=== PATIENT | female | born 1960 | race African-American/Black ===

== ENCOUNTER → 2016-07-30 | Outpatient (CLI) | payer MEDICARE, MEDICAID ==
[~2016-07-30] MED LIST: ALBU18; ALBUAER3 IN; BECL0.07 INH; BENA20TA4; CALCTAB25 PO; FLUT250M2; FOLI1TAB6; HYDR200T36; METH2.5T3; OME20T
[2016-07-30 15:23] LABS: Basophils # (auto) 0.1 uL; Basophils % (auto) 0.7 % (0.0-2.0); Eosinophils # (auto) 0.1 uL; Eosinophils % (auto) 1.3 % (0.0-7.0); Hematocrit 44.4 % (36.0-46.0); Hemoglobin 14.4 g/dL (12.2-16.2); Lymphocytes # (auto) 3.2 uL; Lymphocytes % (auto) 30.9 % (10.0-50.0); Mean Corpuscular Hemoglobin 32.4 pg (28.0-32.0); Mean Corpuscular Hgb Conc. 32.4 g/dL (32.0-36.0); Mean Corpuscular Volume 99.9 fL (80.0-100.0); Mean Platelet Volume 8.4 fL (7.4-10.4); Monocytes # (auto) 0.4 uL; Monocytes % (auto) 4.2 % (0.0-12.0); Neutrophils # (auto) 6.6 uL; Neutrophils % (auto) 62.9 % (37.0-80.0); Platelet Count (auto) 322 10^3/uL (140-450); Red Cell Distribution Width 14.8 % (11.6-16.0); White Blood Cell 10.4 10^3/uL (4.4-10.8)
[2016-07-30 15:49] LABS: Albumin 3.7 g/dL (3.4-5.0); BUN/Creatinine Ratio 12.2; Bilirubin, Total 0.6 mg/dL (0.2-1.0); Calcium 8.6 mg/dL (8.5-10.1); Potassium 4.2 mmol/L (3.5-5.1); Total Protein 7.3 g/dL (6.4-8.2)
== END | disposition home or self-care (01) ==
LOC: LAB 14:25
DX: Z79.899 Other long term (current) drug therapy (principal); M25.50 Pain in unspecified joint; A15.0 Tuberculosis of lung; K25.9 Gastric ulcer, unspecified as acute or chronic, without hemorrhage or perforation; M06.9 Rheumatoid arthritis, unspecified; D64.9 Anemia, unspecified; I10 Essential (primary) hypertension; J44.9 Chronic obstructive pulmonary disease, unspecified
CPT/HCPCS: 36415; 80053; 80074; 85025; 85652; 86141

== ENCOUNTER → 2016-08-16 | Outpatient (CLI) | payer MEDICARE, MEDICAID ==
[~2016-08-16] MED LIST changes: +ALBUTEROL SULF 2.5 MG/0.5ML(0.5%) NEB SOLN ONE
== END | disposition home or self-care (01) ==
LOC: RT 08:37
PROVIDERS: ATTEND Internal Medicine Pulmonary Disease
DX: J44.9 Chronic obstructive pulmonary disease, unspecified (principal); R94.5 Abnormal results of liver function studies
CPT/HCPCS: 94060; 94640

== ENCOUNTER 2016-10-07 14:19 | Emergency (ER) | payer MEDICARE, MEDICAID ==
[~2016-10-07] VITALS: Ht 165.1 cm; Wt 74.8 kg
[~2016-10-07 14:19] MED LIST changes: -ALBUTEROL SULF 2.5 MG/0.5ML(0.5%) NEB SOLN ONE; +BENA20TA14; -BENA20TA4
[2016-10-07] MEDS ORDERED: ALBUTEROL SULF 2.5 MG/0.5ML(0.5%) NEB SOLN NEB STA (14:27)
[2016-10-07] MEDS ORDERED: IPRATROPIUM BROM 0.5 MG/2.5ML INH SOL NEB ONE ×2 (14:30→15:00)
[2016-10-07 14:47] LABS: Basophils # (auto) 0.1 uL; Basophils % (auto) 0.7 % (0.0-2.0); Eosinophils # (auto) 0.2 uL; Eosinophils % (auto) 2.3 % (0.0-7.0); Hematocrit 42.6 % (36.0-46.0); Hemoglobin 14.4 g/dL (12.2-16.2); Lymphocytes # (auto) 1.4 uL; Lymphocytes % (auto) 13.6 % (10.0-50.0); Mean Corpuscular Hemoglobin 32.9 pg (28.0-32.0); Mean Corpuscular Hgb Conc. 33.9 g/dL (32.0-36.0); Mean Platelet Volume 7.7 fL (7.4-10.4); Monocytes # (auto) 0.4 uL; Monocytes % (auto) 3.9 % (0.0-12.0); Neutrophils # (auto) 8.2 uL; Neutrophils % (auto) 79.5 % (37.0-80.0); Platelet Count (auto) 356 10^3/uL (140-450); Red Cell Distribution Width 13.1 % (11.6-16.0); White Blood Cell 10.4 10^3/uL (4.4-10.8)
[2016-10-07] MEDS ORDERED: SODIUM CHLORIDE 0.9% 1,000 ML IV ONE (14:48)
[2016-10-07] MEDS ORDERED: ALBUTEROL SULF 2.5 MG/0.5ML(0.5%) NEB SOLN NEB ONE (15:00)
[2016-10-07] MEDS ORDERED: methylPREDNISolone SOD SUCC 125 MG/2 ML VL IV ONE (15:00)
[2016-10-07 15:39] LABS: Albumin 3.7 g/dL (3.4-5.0); BUN/Creatinine Ratio 19.8; Calcium 8.2 mg/dL (8.5-10.1); Potassium 4.4 mmol/L (3.5-5.1)
[2016-10-07 15:41] LABS: Bilirubin, Total 0.5 mg/dL (0.2-1.0); Total Protein 7.5 g/dL (6.4-8.2)
[2016-10-07 16:39] LABS: B-Type Natriuretic Peptide 86.8 pg/mL (0-100)
[2016-10-07] MEDS ORDERED: AZITHROMYCIN 500MG/D5W 250ML 250 ML IV ONE (16:45)
[2016-10-07 17:22] LABS: Temperature: 23.5 C (20.0-25.0)
[2016-10-07] MEDS ORDERED: ONDANSETRON HCL 4 MG/2 ML VIAL IV ONE (17:30)
[2016-10-07 19:15] VITALS: BP 129/69
== END 2016-10-07 19:49 | disposition home or self-care (01) ==
LOC: ER 14:19
DX: J45.901 Unspecified asthma with (acute) exacerbation (principal); M06.9 Rheumatoid arthritis, unspecified; I10 Essential (primary) hypertension; Z87.891 Personal history of nicotine dependence; J44.9 Chronic obstructive pulmonary disease, unspecified; K21.9 Gastro-esophageal reflux disease without esophagitis
CPT/HCPCS: 36415; 71020; 80053; 83735; 83880; 84443; 85025; 93005; 94640; 94761; 96361; 96365; 96366; 96375; 99285; J0456; J2405; J2930; J7030

== ENCOUNTER 2017-01-19 08:50 | Emergency (ER) | payer MEDICARE, MEDICAID ==
[~2017-01-19] VITALS: Ht 177.8 cm; Wt 68.0 kg
[2017-01-19] MEDS ORDERED: SODIUM CHLORIDE 0.9% 1,000 ML IV ONE (10:21)
[2017-01-19] MEDS ORDERED: MECLIZINE HCL 25 MG TAB PO ONE (10:30)
[2017-01-19 11:05] LABS: Basophils # (auto) 0.2 uL; Basophils % (auto) 2.2 % (0.0-2.0); Eosinophils # (auto) 0.2 uL; Eosinophils % (auto) 1.9 % (0.0-7.0); Hematocrit 40.8 % (36.0-46.0); Hemoglobin 14.1 g/dL (12.2-16.2); Lymphocytes # (auto) 3.2 uL; Lymphocytes % (auto) 39.5 % (10.0-50.0); Mean Corpuscular Hemoglobin 33.7 pg (28.0-32.0); Mean Corpuscular Hgb Conc. 34.4 g/dL (32.0-36.0); Mean Corpuscular Volume 97.9 fL (80.0-100.0); Mean Platelet Volume 7.9 fL (6.9-10.8); Monocytes # (auto) 0.6 uL; Monocytes % (auto) 7.4 % (0.0-12.0); Platelet Count (auto) 284 10^3/uL (140-450); Red Cell Distribution Width 13.5 % (11.8-14.3); White Blood Cell 8.1 10^3/uL (4.4-10.8)
[2017-01-19 11:20] LABS: Albumin 3.5 g/dL (3.4-5.0); BUN/Creatinine Ratio 10.6; Calcium 8.5 mg/dL (8.5-10.1); Magnesium 2.5 mg/dL (1.6-2.6); Potassium 3.9 mmol/L (3.5-5.1)
[2017-01-19 11:25] LABS: Bilirubin, Total 0.6 mg/dL (0.2-1.0); Total Protein 6.6 g/dL (6.4-8.2)
[2017-01-19 15:52] VITALS: BP 130/85
== END 2017-01-19 16:20 | disposition home or self-care (01) ==
LOC: EDBD 08:50 → ER 08:50
DX: R55 Syncope and collapse (principal); R42 Dizziness and giddiness; M06.9 Rheumatoid arthritis, unspecified; J44.9 Chronic obstructive pulmonary disease, unspecified; K21.9 Gastro-esophageal reflux disease without esophagitis; Z87.891 Personal history of nicotine dependence; Z88.6 Allergy status to analgesic agent; Z91.013 Allergy to seafood
CPT/HCPCS: 36415; 70450; 71020; 80053; 83735; 84443; 85025; 93005; 94761; 96360; 96361; 99285; J7030; J8597

== ENCOUNTER → 2017-09-16 | Outpatient (CLI) | payer MEDICARE, MEDICAID ==
[~2017-09-16] MED LIST changes: -ALBU18; -BENA20TA14; +BENA20TA14 PO; +DEXT1SYP9 PO; -FOLI1TAB6; +FOLI1TAB6 PO; +LEVO500T21 PO; -METH2.5T3; +METH2.5T3 PO; +NICO14DI9 TD; -OME20T; +OMEP20CA74 PO
[2017-09-16 10:46] LABS: Albumin 3.5 g/dL (3.4-5.0); BUN/Creatinine Ratio 15.3; Bilirubin, Total 0.6 mg/dL (0.2-1.0); Calcium 8.6 mg/dL (8.5-10.1); Potassium 3.7 mmol/L (3.5-5.1); Total Protein 6.6 g/dL (6.4-8.2)
== END | disposition home or self-care (01) ==
LOC: LAB 09:37
PROVIDERS: ATTEND Internal Medicine Pulmonary Disease
DX: Z12.11 Encounter for screening for malignant neoplasm of colon (principal); M06.9 Rheumatoid arthritis, unspecified; M13.0 Polyarthritis, unspecified; J44.9 Chronic obstructive pulmonary disease, unspecified; K21.9 Gastro-esophageal reflux disease without esophagitis; I10 Essential (primary) hypertension; Z79.899 Other long term (current) drug therapy
CPT/HCPCS: 36415; 80053; 80061; 82270; 83036; 87070; 87205

== ENCOUNTER 2018-03-24 10:47 | Inpatient (IN) | payer OTHER, MEDICAID ==
[~2018-03-24] VITALS: Ht 165.1 cm; Wt 73.1 kg
[2018-03-24] MEDS ORDERED: IPRATROPIUM BROM 0.5 MG/2.5ML INH SOL HHN ONE (11:30)
[2018-03-24] MEDS ORDERED: methylPREDNISolone SOD SUCC 125 MG/2 ML VL IV ONE (11:30)
[2018-03-24] MEDS ORDERED: ALBUTEROL SULF 2.5 MG/0.5ML(0.5%) NEB SOLN HHN ONE (11:30)
[2018-03-24 12:13] LABS: Basophils # (auto) 0 uL; Basophils % (auto) 0.7 % (0.0-2.0); Eosinophils # (auto) 0.3 uL; Eosinophils % (auto) 3.9 % (0.0-7.0); Hematocrit 42.9 % (36.0-46.0); Hemoglobin 14.2 g/dL (12.2-16.2); Lymphocytes # (auto) 2.7 uL; Lymphocytes % (auto) 38.8 % (10.0-50.0); Mean Corpuscular Hemoglobin 32.4 pg (28.0-32.0); Mean Corpuscular Hgb Conc. 33.1 g/dL (32.0-36.0); Mean Corpuscular Volume 97.8 fL (80.0-100.0); Monocytes # (auto) 0.7 uL; Monocytes % (auto) 9.7 % (0.0-12.0); Neutrophils # (auto) 3.3 uL; Neutrophils % (auto) 46.9 % (37.0-80.0); Nucleated Red Blood Cells % 0.1 %; Platelet Count (auto) 338 10^3/uL (140-450); Red Blood Cells 4.38 10^6/uL (4.0-5.20); Red Cell Distribution Width 13.9 % (11.8-14.3); White Blood Cell 6.9 10^3/uL (4.4-10.8)
[2018-03-24 12:31] LABS: Alanine Aminotransferase 27 U/L (13-56); Albumin 3.6 g/dL (3.4-5.0); Anion Gap 7 (5-15); Aspartate Aminotransferase 19 U/L (15-37); BUN/Creatinine Ratio 13.6; Blood Urea Nitrogen 15 mg/dL (7-18); Calcium 8.6 mg/dL (8.5-10.1); Carbon Dioxide 27 mmol/L (21-32); Chloride 110 mmol/L (98-107); GFR African American 65 mL/min; GFR Non-African American 54 mL/min; Glucose 83 mg/dL (74-106); Magnesium 2.3 mg/dL (1.6-2.6); Potassium 4.7 mmol/L (3.5-5.1); Sodium 144 mmol/L (136-145)
[2018-03-24 12:37] LABS: Alkaline Phosphatase 88 U/L (45-117); Bilirubin, Total 0.4 mg/dL (0.2-1.0); Total Protein 7.5 g/dL (6.4-8.2)
[2018-03-24] MEDS ORDERED: NITROGLYCERIN 0.4 MG SL TAB SL PRN (14:30)
[2018-03-24] MEDS ORDERED: AZITHROMYCIN 500MG/ 250ML 250 ML IV ONE (14:30)
[2018-03-24] MEDS ORDERED: cefTRIAXone 1GM/50ML D5W 50 ML IV ONE (14:30)
[2018-03-24] MEDS ORDERED: MORPHINE SULFATE 4 MG/ML SYR/VIAL IV PRN (14:30)
[2018-03-24] MEDS ORDERED: NICOTINE 14 MG/24HR TOPICAL PATCH TD ONE (14:30)
[2018-03-24] MEDS: LORazepam 2MG/ML-1ML VIAL IV PRN (17:42)
[2018-03-24] MEDS: BUDESONIDE (INHALATION) 0.5 MG/2 ML NEB NEB SCH (18:05)
[2018-03-24] MEDS: IPRATROPIUM BROM 0.5 MG/2.5ML INH SOL NEB SCH ×2 (18:14→22:40)
[2018-03-24] MEDS: ALBUTEROL SULF 2.5 MG/0.5ML(0.5%) NEB SOLN NEB SCH ×2 (18:15→22:41)
[2018-03-24] MEDS ORDERED: ALUM & MAG HYDROX-SIMETH LIQ(MAALOX) 30 ML PO ONE (19:45)
[2018-03-24 19:47] VITALS: BP 128/78
[2018-03-24] MEDS ORDERED: ASPI81TA27 PO (21:30)
[2018-03-24] MEDS ORDERED: CHOL20007 PO (21:31)
[2018-03-24 22:00] VITALS: BP 127/70
[2018-03-24] MEDS: methylPREDNISolone SOD SUCC 40 MG/ML VL IV SCH (22:13)
[2018-03-25 00:34] VITALS: BP 127/70
[2018-03-25] MEDS: LORazepam 2MG/ML-1ML VIAL IV PRN ×2 (02:16→21:52)
[2018-03-25 05:00] VITALS: BP 156/93
[2018-03-25] MEDS: IPRATROPIUM BROM 0.5 MG/2.5ML INH SOL NEB SCH ×5 (05:41→23:00)
[2018-03-25] MEDS: ALBUTEROL SULF 2.5 MG/0.5ML(0.5%) NEB SOLN NEB SCH ×5 (05:41→23:00)
[2018-03-25] MEDS: methylPREDNISolone SOD SUCC 40 MG/ML VL IV SCH ×2 (05:44→21:52)
[2018-03-25 06:59] LABS: Anion Gap 9 (5-15); Blood Urea Nitrogen 15 mg/dL (7-18); Calcium 8.9 mg/dL (8.5-10.1); Carbon Dioxide 24 mmol/L (21-32); Chloride 108 mmol/L (98-107); Glucose 148 mg/dL (74-106); Potassium 4.1 mmol/L (3.5-5.1); Sodium 141 mmol/L (136-145)
[2018-03-25 07:05] LABS: BUN/Creatinine Ratio 16.3; GFR African American 80 mL/min; GFR Non-African American 66 mL/min
[2018-03-25] MEDS: cefTRIAXone 1GM/50ML D5W 50 ML IV SCH (08:48)
[2018-03-25] MEDS: PANTOPRAZOLE 40 MG TAB PO SCH (08:48)
[2018-03-25] MEDS: ONDANSETRON HCL 4 MG/2 ML VIAL IV PRN ×2 (08:48→21:52)
[2018-03-25] MEDS: HYDROcodone-ACET 5/325MG TAB PO PRN ×2 (08:49→21:53)
[2018-03-25] MEDS: HYDROXYCHLOROQUINE SULFATE 200 MG TAB PO SCH (08:50)
[2018-03-25] MEDS: FOLIC ACID 1 MG TAB PO SCH (08:51)
[2018-03-25] MEDS: BENAZEPRIL HCL 10 MG TAB PO SCH (08:53)
[2018-03-25 09:00] VITALS: BP 149/82
[2018-03-25] MEDS: NICOTINE 14 MG/24HR TOPICAL PATCH TD SCH (09:08)
[2018-03-25] MEDS ORDERED: AZITHROMYCIN 500MG/ 250ML 250 ML IV SCH (10:00)
[2018-03-25] MEDS: BUDESONIDE (INHALATION) 0.5 MG/2 ML NEB NEB SCH ×2 (10:46→19:05)
[2018-03-25 12:40] VITALS: BP 133/69
[2018-03-25 17:00] VITALS: BP 134/74
[2018-03-25 22:01] VITALS: BP 134/66
[2018-03-25 22:42] LABS: Urine Bacteria NONE SEEN /hpf (None Seen); Urine Blood Negative /uL (Negative); Urine Specific Gravity 1.009 (1.001-1.035); Urine WBC 2 /hpf (0 - 5)
[2018-03-26 05:00] VITALS: BP 140/68
[2018-03-26] MEDS: ALBUTEROL SULF 2.5 MG/0.5ML(0.5%) NEB SOLN NEB SCH ×3 (07:36→15:03)
[2018-03-26] MEDS: IPRATROPIUM BROM 0.5 MG/2.5ML INH SOL NEB SCH ×3 (07:36→15:03)
[2018-03-26] MEDS: BUDESONIDE (INHALATION) 0.5 MG/2 ML NEB NEB SCH (07:36)
[2018-03-26 09:00] VITALS: BP 121/66
[2018-03-26] MEDS: cefTRIAXone 1GM/50ML D5W 50 ML IV SCH (09:25)
[2018-03-26] MEDS: PANTOPRAZOLE 40 MG TAB PO SCH (09:37)
[2018-03-26] MEDS: HYDROXYCHLOROQUINE SULFATE 200 MG TAB PO SCH (09:37)
[2018-03-26] MEDS: methylPREDNISolone SOD SUCC 40 MG/ML VL IV SCH (09:37)
[2018-03-26] MEDS: FOLIC ACID 1 MG TAB PO SCH (09:37)
[2018-03-26] MEDS: NICOTINE 14 MG/24HR TOPICAL PATCH TD SCH (09:38)
[2018-03-26] MEDS: BENAZEPRIL HCL 10 MG TAB PO SCH (09:43)
[2018-03-26] MEDS ORDERED: AZITHROMYCIN 250 MG TAB PO SCH (10:00)
[2018-03-26 13:00] VITALS: BP 142/70
[2018-03-26 14:59] VITALS: BP 121/66
== END 2018-03-26 15:30 | disposition home or self-care (01) | DRG 193 ==
LOC: ER 10:47 → TELE 14:25 → TELE-WESTW 20:25 → WEST WING 03-25 15:29
PROVIDERS: ADMIT Internal Medicine; ATTEND Internal Medicine
DX: J18.9 Pneumonia, unspecified organism (principal); J96.20 Acute and chronic respiratory failure, unspecified whether with hypoxia or hypercapnia; J44.1 Chronic obstructive pulmonary disease with (acute) exacerbation; J44.0 Chronic obstructive pulmonary disease with (acute) lower respiratory infection; I10 Essential (primary) hypertension; M06.9 Rheumatoid arthritis, unspecified; K21.9 Gastro-esophageal reflux disease without esophagitis; F17.200 Nicotine dependence, unspecified, uncomplicated; M19.90 Unspecified osteoarthritis, unspecified site; Z88.8 Allergy status to other drugs, medicaments and biological substances; Z91.013 Allergy to seafood; Z91.012 Allergy to eggs
CPT/HCPCS: 36415; 71045; 80048; 80053; 81001; 83735; 83880; 84484; 85025; 85379; 87081; 93005; 93306; 94640; 94644; 94761; 96365; 96367; 96375; G0378; J0696; J2405

== ENCOUNTER 2018-04-19 14:16 | Emergency (ER) | payer OTHER, MEDICAID ==
[~2018-04-19] VITALS: Ht 167.6 cm; Wt 69.4 kg
[~2018-04-19 14:16] MED LIST changes: +ASPI81TA27 PO; +CHOL20007 PO; -LEVO500T21 PO; -OMEP20CA74 PO
[2018-04-19] MEDS ORDERED: SODIUM CHLORIDE 0.9% 1,000 ML IV ONE (14:31)
[2018-04-19] MEDS ORDERED: MECLIZINE HCL 25 MG TAB PO ONE (14:45)
[2018-04-19 15:15] LABS: Basophils # (auto) 0 uL; Eosinophils # (auto) 0.2 uL; Hematocrit 46.7 % (36.0-46.0); Lymphocytes # (auto) 1.6 uL; Nucleated Red Blood Cells % 0.1 %
[2018-04-19 15:19] LABS: Alanine Aminotransferase 26 U/L (13-56); Albumin 3.5 g/dL (3.4-5.0); Anion Gap 5 (5-15); BUN/Creatinine Ratio 10.9; Blood Urea Nitrogen 10 mg/dL (7-18); Calcium 8.4 mg/dL (8.5-10.1); Carbon Dioxide 24 mmol/L (21-32); Chloride 109 mmol/L (98-107); GFR African American 80 mL/min; GFR Non-African American 66 mL/min; Glucose 71 mg/dL (74-106); Potassium 4.7 mmol/L (3.5-5.1); Sodium 138 mmol/L (136-145)
[2018-04-19 15:20] LABS: Basophils % (auto) 0.7 % (0.0-2.0); Eosinophils % (auto) 2.5 % (0.0-7.0); Hemoglobin 14.9 g/dL (12.2-16.2); Lymphocytes % (auto) 22.3 % (10.0-50.0); Mean Corpuscular Hemoglobin 32.6 pg (28.0-32.0); Mean Corpuscular Hgb Conc. 31.8 g/dL (32.0-36.0); Mean Corpuscular Volume 102.5 fL (80.0-100.0); Monocytes # (auto) 0.5 uL; Monocytes % (auto) 6.6 % (0.0-12.0); Neutrophils % (auto) 67.9 % (37.0-80.0); Platelet Count (auto) 277 10^3/uL (140-450); Red Blood Cells 4.56 10^6/uL (4.0-5.20); White Blood Cell 7.3 10^3/uL (4.4-10.8)
[2018-04-19 15:23] LABS: Alkaline Phosphatase 83 U/L (45-117); Aspartate Aminotransferase 22 U/L (15-37); Bilirubin, Total 0.6 mg/dL (0.2-1.0); Total Protein 6.9 g/dL (6.4-8.2)
[2018-04-19 16:03] VITALS: BP 126/90
== END 2018-04-19 18:13 | disposition home or self-care (01) ==
LOC: EDBD 14:16 → ER 14:16 → EDUNIT# 14:16 → ER 18:13
DX: R42 Dizziness and giddiness (principal); I10 Essential (primary) hypertension; J44.9 Chronic obstructive pulmonary disease, unspecified; M19.90 Unspecified osteoarthritis, unspecified site; K21.9 Gastro-esophageal reflux disease without esophagitis; Z88.2 Allergy status to sulfonamides; Z91.012 Allergy to eggs; Z91.013 Allergy to seafood
CPT/HCPCS: 36415; 70450; 80053; 84484; 85025; 93005; 99284; J8597